=== PATIENT | female | born 1985 | race Hispanic/Latino ===

== ENCOUNTER 2020-11-24 12:11 | Outpatient (CLI) | payer OTHER ==
[2020-11-24 19:34] LABS: Free T4 (Free Thyroxine) 0.93 ng/dL (0.70-1.48)
[2020-11-26 06:29] LABS: Thyroid Stimulating Hormone 0.4299 uIU/mL (0.35-4.94)
== END 2020-11-24 12:12 | disposition home or self-care (01) ==
LOC: BURLAB 12:11
PROVIDERS: ATTEND Physician Assistant
DX: R79.89 Other specified abnormal findings of blood chemistry (principal)
CPT/HCPCS: 36415; 84439; 84443; 84445

== ENCOUNTER 2021-08-10 11:55 | Outpatient (CLI) | payer OTHER | END 2021-08-10 11:56 | disposition home or self-care (01) | LOC: BURLAB 11:55 | PROVIDERS: ATTEND Physician Assistant | DX: R79.89 Other specified abnormal findings of blood chemistry (principal) | CPT/HCPCS: 36415; 84443 ==